=== PATIENT | female | born 1990 | race Caucasian/White ===

== ENCOUNTER 2019-04-01 09:04 | Emergency (ER) | payer MEDICAID ==
[2019-04-01 09:44] VITALS: BP 121/85; PULSE 82; O2SAT 99
[2019-04-01] MEDS ORDERED: Rocephin 500 MG INJ IM ONE (09:46)
--- NOTE | 2019-04-01 09:52 | ERPHSYRPT ---
- History of Present Illness Time Seen by Provider: 04/01/19 09:43 Source: patient Exam Limitations: clinical condition Patient Subjective Stated Complaint: states a bump on her vaginal area x 1 1/2 weeks. has been squeezing Triage Nursing Assessment: awake and in no distress. twan has had a bump in her vaginal area x 10 days.. noted an abraised area to the right outer labia where she has been squeezing and a raised area to the left inner labial area. no drainage noted.. c/o pain. Physician History: PATIENT COMPLAINS OF PAINFUL SWOLLEN AREA OVER RIGHT VAGINAL AREA X 10 DAYS, USED FINGER TO RUPTURE BOIL. HAS ASSOCIATED PAIN, DENIES VAGINAL DISCHARGE, FEVER OR URINARY SYMPTOMS. Timing/Duration: week(s) Activites at Onset: none Quality: stabbing Onset Location: vulvar pain Pain Radiation: none Severity of Pain-Max: mild Severity of Pain-Current: mild Prior abdominal problems: similar symptoms Sexual intercourse history: non-contributory Modifying Factors: Improves With: movement Associated Symptoms: denies symptoms Allergies/Adverse Reactions: No Known Drug Allergies Allergy (Verified 04/01/19 09:45) - Review of Systems Constitutional: No Fever, No Chills Eyes: No Symptoms Ears, Nose, & Throat: No Symptoms Respiratory: No Cough, No Dyspnea Cardiac: No Chest Pain, No Edema, No Syncope Abdominal/Gastrointestinal: No Abdominal Pain, No Nausea, No Vomiting, No Diarrhea Genitourinary Symptoms: Other (PAIN OVER VAGINAL AREA), No Dysuria Musculoskeletal: No Symptoms, No Back Pain, No Neck Pain Skin: No Rash Neurological: No Dizziness, No Focal Weakness, No Sensory Changes Psychological: No Symptoms Endocrine: No Symptoms All Other Systems: Reviewed and Negative - Past Medical History Pertinent Past Medical History: Yes Respiratory History: Asthma - Past Surgical History Past Surgical History: No - Social History Smoking Status: Current every day smoker Exposure to second hand smoke: No Drug Use: none Patient Lives Alone: No - Female History Hx Now: No - Nursing Vital Signs Nursing Vital Signs: Initial Vital Signs Temperature 97.1 F 04/01/19 09:36 Pulse Rate 82 04/01/19 09:36 Respiratory Rate 16 04/01/19 09:36 Blood Pressure 121/85 04/01/19 09:36 O2 Sat by Pulse Oximetry 99 04/01/19 09:36 Pain Scale Pain Intensity 5 - Physical Exam General Appearance: no apparent distress, alert Eye Exam: PERRL/EOMI, eyes nml inspection Ears, Nose, Throat Exam: normal ENT inspection, TMs normal, pharynx normal, moist mucous membranes Neck Exam: normal inspection, non-tender, supple, full range of motion Respiratory Exam: normal breath sounds, lungs clear, No respiratory distress Cardiovascular Exam: regular rate/rhythm, normal heart sounds, normal peripheral pulses Gastrointestinal/Abdomen Exam: No tenderness, No mass Pelvic Exam: other (NONFLUCTUANT SWELLING 1CM X 8MM WITH CENTRAL 1MM PERFORATION OVER MID RIGHT LABIA MAJORA, NO DRAINAGE NOTED) Back Exam: normal inspection, normal range of motion, No CVA tenderness, No vertebral tenderness Extremity Exam: normal inspection, normal range of motion, pelvis stable Neurologic Exam: alert, oriented x 3, cooperative, content management consultant II-XII nml as tested, normal mood/affect, sensation nml, No motor deficits Skin Exam: normal color, warm, dry Lymphatic Exam: No adenopathy SpO2: 99 Ordered Tests: Active Orders 24 hr Category Date Time Status UA W/RFX UR CULTURE Stat Lab 04/01/19 09:45 Completed Urine Triage Profile Stat Lab 04/01/19 09:45 Completed Medication Summary Discontinued Medications Generic Name Dose Route Start Last Admin Trade Name Freq PRN Reason Stop Dose Admin Ceftriaxone Sodium 500 mg 04/01/19 09:46 04/01/19 10:28 Rocephin 500 Mg Inj IM 04/01/19 09:47 500 mg STAT ONE Administration Ceftriaxone Sodium Confirm 04/01/19 10:15 Rocephin 500 Mg Inj Administered 04/01/19 10:16 Dose 500 mg .ROUTE .STK-MED ONE Lab/Rad Data: Laboratory Results 04/01/19 04/01/19 Range/Units 09:45 09:45 Urine Color STRAW (YELLOW) Urine Appearance CLEAR (CLEAR) Urine pH 6.0 (5-6) Ur Specific Ranger 1.002 (1.005-1.025) Urine Protein NEGATIVE (Negative) Urine Ketones NEGATIVE (NEGATIVE) Urine Blood NEGATIVE (0-5) Kar/ul Urine Nitrite NEGATIVE (NEGATIVE) Urine Bilirubin NEGATIVE (NEGATIVE) Urine Urobilinogen NEGATIVE (0-1) mg/dL Ur Leukocyte Esterase TRACE (NEGATIVE) Urine WBC (Auto) 3-5 (0-5) /HPF Urine RBC (Auto) NONE (0-2) /HPF U Epithel Cells (Auto) RARE (FEW) /HPF Urine Bacteria (Auto) FEW (NEGATIVE) /HPF Urine Culture Reflexed NO (NO) Urine Glucose NEGATIVE (NEGATIVE) mg/dL Urine Opiates Level NEGATIVE (NEGATIVE) Ur Methadone NEGATIVE (NEGATIVE) Urine Barbiturates NEGATIVE (NEGATIVE) Ur Phencyclidine (PCP) NEGATIVE (NEGATIVE) Urine Amphetamine POSITIVE (NEGATIVE) U Benzodiazepine Level NEGATIVE (NEGATIVE) Urine Cocaine NEGATIVE (NEGATIVE) Urine Marijuana (THC) NEGATIVE (NEGATIVE) - Progress Progress Note: 04/01/19 10:06 ROCEPHIN 500MG IM Counseled pt/family regarding: lab results, diagnosis, need for follow-up - Departure Departure Disposition: Home Clinical Impression: RIGHT BARTHOLIN CYST, SUBSTANCE ABUSE-METHAMPHETAMINE Condition: Stable Critical Care Time: No Additional Instructions: BEGIN SITZ BATH SOAKS 40 MINUTES 2-3 TIMES DAILY FOR 4 DAYS. ANTIBIOTIC BACTRIM DS TWICE DAILY FOR 10 DAYS. TORADOL 10MG EVERY 6 HOURS FOR PAIN. CALL [facility] OR [facility] FOR THEATRE [facility]NAGER REFERRAL. TYLENOL EVERY 4 HOURS FOR FEVER. Prescriptions: Ketorolac Tromethamine [Toradol] 10 mg PO Q6H PRN PRN #20 tablet PRN Reason: Pain Smz/Tmp Ds Tablet [Bactrim Ds Tablet] 1 tab PO BID #20 tablet
[2019-04-01 10:03] LABS: Appearance CLEAR (CLEAR); Bacteria FEW /HPF (NEGATIVE); Bilirubin NEGATIVE (NEGATIVE); Blood NEGATIVE Ery/ul (0-5); Epithelial Cells RARE /HPF (FEW); Glucose NEGATIVE (NEGATIVE); Ketones NEGATIVE (NEGATIVE); Leukocyte Esterase TRACE (NEGATIVE); Nitrite NEGATIVE (NEGATIVE); Protein,Urine Dip NEGATIVE (Negative); Specific Gravity 1.002 (1.005-1.025); Urobilinogen NEGATIVE mg/dL (0-1)
[2019-04-01] MEDS ORDERED: Rocephin 500 MG INJ ONE (10:15)
[2019-04-01 10:24] LABS: Amphetamine,Urine POSITIVE (NEGATIVE); Barbiturate,Urine NEGATIVE (NEGATIVE); Benzodiazepine,Urine NEGATIVE (NEGATIVE); Cocaine,Urine NEGATIVE (NEGATIVE); Methadone,Urine NEGATIVE (NEGATIVE); Opiate,Urine NEGATIVE (NEGATIVE); PCP,Urine NEGATIVE (NEGATIVE); THC,Urine NEGATIVE (NEGATIVE)
== END 2019-04-01 10:55 | disposition home or self-care (01) ==
LOC: ED 09:04
DX: N75.0 Cyst of Bartholin's gland (principal); F19.10 Other psychoactive substance abuse, uncomplicated
CPT/HCPCS: 80307; 81001; 96372; 99283; 99284; J0696